=== PATIENT | male | born 1965 | race Caucasian/White ===

== ENCOUNTER 2024-05-18 19:23 | Emergency (ER) | payer SELFPAY ==
[2024-05-18] VITALS (11 sets, daily range): BP systolic 130–194; BP diastolic 76–117
[2024-05-18 19:46] LABS: % Basophils 0.6 % (0-2); % Eosinophils 2.3 % (0-6); % Immature Granulocytes 0.2 % (0-0.5); % Monocytes 7.7 % (1.7-9.3); % Neutrophils 47.2 % (42.2-75.2); Absolute Basophils 0.1 10^3/uL (0-0.2); Absolute Eosinophils 0.2 10^3/uL (0-0.7); Absolute Lymphocytes 4.3 10^3/uL (1.2-3.4); Absolute Monocytes 0.8 10^3/uL (0.1-0.6); Absolute Neutrophils 4.8 10^3/uL (1.4-6.5); Hemoglobin 13.6 g/dL (13.0-18.0); Mean Corp Hgb Conc. 36.8 g/dL (33.0-37.0); Mean Corpuscular Hgb 31.1 pg (27.0-31.0); Mean Corpuscular Volume 84.7 fL (80.0-94.0); Nucleated Red Blood Cells % 0 % (-); Platelet Count 284 10^3/uL (130-400); Red Blood Cell Count 4.37 10^6/uL (4.70-6.10); White Blood Cell Count 10.1 10^3/uL (4.8-10.8)
[2024-05-18 19:58] LABS: ALT (SGPT) 22 U/L (0-50); AST (SGOT) 25 U/L (17-59); Albumin 4.1 g/dl (3.5-5.0); Alkaline Phosphatase 82 U/L (38-126); Blood Urea Nitrogen 24 mg/dl (9-20); Calcium 9.5 mg/dl (8.4-10.2); Carbon Dioxide 23 mmol/L (22-30); Chloride 107 mmol/L (98-107); Glucose 112 mg/dl (70-99); Potassium 3.9 mmol/L (3.5-5.1); Sodium 137 mmol/L (135-145); Total Bilirubin 0.3 mg/dl (0.2-1.3); Total Protein 6.9 g/dl (6.3-8.2); eGFR > 60.00
[2024-05-18 20:10] LABS: Troponin I < 0.012 ng/ml
--- NOTE | 2024-05-18 20:33 | ED.GENMED ---
History of Present Illness
General
Chief Complaint: Blood Pressure Problem
Source: patient
Exam Limitations: none
Time Seen by Provider: 05/18/24 20:15
Nursing documentation reviewed up to this point in time: agreed with
History of Present Illness
History of Present Illness:
59-year-old male with past medical history of recently diagnosed hypertension, smoker who presents to the emergency department with his sister for evaluation of hypertension also reported an episode of chest tightness tonight. Patient reports that
he was at work a few weeks ago and started to notice some paresthesias in his hands and his feet. He says he went to see his primary doctor and he was found to have new onset hypertension; incidentally also notes that his B12 level was low and he
was started on B12 supplement. Initially his primary doctor started on metoprolol 25 mg daily; ultimately this did not improve his blood pressure and in fact his blood pressure continued to trend upwards. About a week ago dose was increased to 100
mg of metoprolol daily. Blood pressure has continued to stay elevated despite this increase. Tonight patient says that he checked his blood pressure and it was over 200 systolic. He says that he started to have some tightness in the left side of
his chest and he decided to come to the emergency department to be assessed. He says the chest pain has resolved his only complaint is that he has been having paresthesias for the past few weeks in his hands and his feet. He denies any focal
weakness or numbness. Denies any loss of vision. Denies any speech issues. He denies any headache. Denies any shortness of breath. He denies any other complaints.
Past History
Past History
ED Past Medical History: None; Negative Asthma, HTN, Hypercholesterolemia or NIDDM
ED Past Surgical History: None
Social History
Tobacco: Smoker
Alcohol: Occasional
Personal:
Living: alone
Review of Systems
Review of Systems
All Other Systems: ROS reviewed and negative except as documented in HPI and ROS
Constitutional: Denies fever or chills
Respiratory: Denies trouble breathing
Cardiac: Reports chest pain; Denies diaphoresis or palpitations
ABD/GI: Denies abdominal pain, nausea or vomiting
: Denies flank pain
Musculoskeletal: Denies neck pain or back pain
Neurological: Reports other (Paresthesia); Denies dizzy, headache, weakness or numbness
Phy Exam
Physical Exam
Physical Exam:
General: Awake, alert, oriented x3; no acute distress
Head: Normocephalic, atraumatic
Eyes: Conjunctiva normal, EOMI, pupils equal round and reactive to light bilaterally
Throat: Airway intact, handling secretions
Neck: Trachea midline, supple without meningismus
Lungs: Clear to auscultation bilaterally, no wheezing, rales, rhonchi
Heart: Regular rate and rhythm, no murmurs, gallops, or rubs
Abd: Soft, non distended, nontender
Neuro: Cranial nerves intact, speech is fluent without dysarthria or aphasia, motor and sensory function is intact and symmetric proximally and distally in the upper and lower extremities
Skin: no rash
Extremities: No edema in extremities, equal pulses in all extremities
Scores
Heart Failure Risk
Heart Failure Risk Score: Not Applicable
Heart Score for Chest Pain Patients
STEMI patient?: No
History: Slightly or Non-Suspicious
ECG: Normal
Age: >45 - <65 years
Risk Factors: 1 or 2 Risk Factors
Troponin: </= Normal Limit
Heart Score for Chest Pain Patients: 2
Heart Score Risk: 2.5% MACE over next 6 weeks
Withdrawal Assessment of Alcohol
Withdrawal Assessment Completed?: Not applicable
Course
Orders/Labs/Results
Orders:
Orders
05/18/24 19:29
EKG [Electrocardiogram (*1)] Urgent
Reason for Study: Hypertension, Benign
EKG- Treatment ONCE
05/18/24 19:39
CBC/With Diff [Complete Blood Count/With Diff] Urgent
CMP [Comprehensive Metabolic Panel] Urgent
Troponin I Urgent
05/18/24 20:32
HydrALAZINE [Apresoline] 10 mg IV NOW STA
Lisinopril [Zestril] 10 mg PO NOW STA
05/18/24 20:52
B12 [Vitamin B12] Urgent
Folate Urgent
Hemoglobin A1c [Glycohemoglobin (HgbA1c)] Urgent
05/18/24 21:00
Troponin I Urgent
05/18/24 21:39
HydrALAZINE [Apresoline] 10 mg IV NOW STA
Abnormal Lab Results
05/18/24
19:39
RBC 4.37 L 10^6/uL
(4.70-6.10)
Hct 37.0 L %
(39.0-52.0)
MCH 31.1 H pg
(27.0-31.0)
Absolute Lymphs (auto) 4.3 H 10^3/uL
(1.2-3.4)
Absolute Monos (auto) 0.8 H 10^3/uL
(0.1-0.6)
BUN 24 H mg/dl
(9-20)
Glucose 112 H mg/dl
(70-99)
05/18/24 19:39
05/18/24 19:39
Vital Signs
Initial and Last Documented VS:
Initial Vital Signs
Temp Pulse Resp BP Pulse Ox
36.8 C 69 18 194/112 98
05/18/24 19:25 05/18/24 19:25 05/18/24 19:25 05/18/24 19:25 05/18/24 19:25
Last Documented Vital Signs
Temp Pulse Resp BP Pulse Ox
36.8 C 71 16 130/76 99
05/18/24 19:25 05/18/24 22:30 05/18/24 22:30 05/18/24 22:30 05/18/24 20:49
MDM/Problems Addressed
Differential Diagnosis Includes:
Chest pain: Acute [place], GERD, anxiety; PE and aortic dissection unlikely based on full clinical picture in my judgment no further workup for these diagnoses indicated at this point in time
MDM/Problems Addressed:
59-year-old male presents for evaluation of hypertension�has been increasing over the past few weeks despite initiation and up titration of metoprolol. He took his blood pressure medicine this evening, he checked his blood pressure was over 200 and
he started to have some mild chest discomfort. Came to the emergency room and symptoms resolved. He now is asymptomatic. Only other complaint has been some intermittent paresthesias for the past 3 weeks in his hands and his feet. He is markedly
hypertensive here 194/112. Rest of vitals normal. Physical exam as above�notably nonfocal neurologic exam. EKG shows no STEMI. Plan to place an IV check labs including a CBC and CMP. Will check serial troponins. Patient requesting that we
recheck his vitamin B12 level; will also send an A1c on him with paresthesias consistent with peripheral neuropathy. Will monitor on telemetry. At this point he will need addition secondary antihypertensive�initiate lisinopril and monitor blood
pressure here�if not improving consider additional antihypertensives.
Labs reviewed: CBC and CMP no clinically significant abnormalities. Troponins undetectable x 2. Patient remains asymptomatic, blood pressure improved with ED treatment now 130/76. Will continue patient on lisinopril going forward advised him to
monitor blood pressure and follow-up with PCP. Will also refer to cardiology in an abundance of caution given his episode of chest discomfort tonight. Patient comfortable this plan. We spoke with return precautions all questions answered.
Chronic conditions affecting care:
Hypertension, smoker
Acute Exacerbation and/or Progression of Chronic Illness:
Acutely hypertensive managed as above
Acute Exacerbation and/or Progression of Chronic Illness: HTN
*Pulse Oximetry
Patient hypoxic: no
*EKG
Interpreted by ED Provider?: Yes
Heart Rate: 65
Rate: normal
Rhythm: sinus
[place]: normal axis
Interval: normal interval
QRS Pattern: normal QRS
Ischemia: no ischemia
*Critical Care Note
Total Time (30-74mins, 75-104mins- exclusive of procedures): Not Applicable
Data Reviewed
Source: patient and family
ED Attending Note
-
Portions of this chart may have been created with voice recognition software.� Occasional wrong word or��sound alike� substitutions may have occurred due to the inherent limitations of voice recognition software.
Discharge Plan
Departure
Patient Disposition: Home (Routine Discharge)
Date of Disposition: 05/18/24
Time of Disposition: 22:44
Patient with high blood pressure during this ER visit?: Yes
Discharge Problem:
Hypertension, Chest pain
Instructions: High Blood Pressure (DC), Chest Pain DCA Follow Up
Prescriptions:
New
lisinopril 10 mg tablet
10 mg PO DAILY Qty: 30 0RF
Referrals:
Aníbal Jung MD [Family Provider] -
Gregorio Bravo MD [Active] - Call in 1-3 days for appt
Activity Restrictions/Additional Instructions:
Thank you for visiting the Emergency Department at [facility].
1. Please schedule a follow up appointment as directed. Call first thing tomorrow morning to make an appointment.
2. If indicated, please take your medications as instructed and indicated on discharge paperwork.
3. If any of your symptoms do not improve, or persist, or become more severe within 6-12 hours, please return to the emergency department for further care.
4. Please return to the emergency department if you develop a headache, neck pain/stiffness, fever greater than 100.4F, chest pain, shortness of breath, persistent nausea, vomiting, slurred speech, difficulty walking, numbness/tingling, weakness,
signs of infection or any other symptoms that are worrisome to you.
Please call [phone] if you have any questions.
Interventions
Interventions:
*Risk Screen - Suicide Last Done: 05/18/24 19:25
*General Assessment Last Done: 05/18/24 19:25
*Neglect/Abuse Screening Last Done: 05/18/24 19:25
ED- Fall Risk Assessment Last Done: 05/18/24 20:49
*ED COVID-19 Vaccine History Last Done: 05/18/24 20:51
ED- Cardiac Assessment Last Done: 05/18/24 20:49
ED- Neurological Assessment Last Done: 05/18/24 20:49
ED- Pulmonary Assessment Last Done: 05/18/24 20:49
Discharge Date and Time
Print Language: [email or web address]
[2024-05-18] MEDS: ZESTRIL 10 MG PO (20:41)
[2024-05-18 21:29] LABS: Troponin I < 0.012 ng/ml
[2024-05-18] MEDS: APRESOLINE 10 MG IV (21:53)
[2024-05-18 22:22] LABS: Folate 15.7 ng/ml (2.76-20); Vitamin B12 328 pg/ml (239-931)
== END 2024-05-18 22:51 | disposition home or self-care (01) ==
LOC: EMR 19:23
PROVIDERS: Emergency Medicine; EMERGENCY PHYSICIAN Emergency Medicine; FAMILY PHYSICIAN Internal Medicine
DX: R07.89 Other chest pain (principal); I10 Essential (primary) hypertension; F17.200 Nicotine dependence, unspecified, uncomplicated
CPT/HCPCS: 99284; 96374; 80053; 82607; 82746; 83036; 84484; 85025; 93005